=== PATIENT | male | born 1930 | race Caucasian/White ===

== ENCOUNTER → 2017-02-03 | Outpatient (CLI) | payer OTHER ==
[~2017-02-03] MED LIST: ASPIRIN81 M1 PO; TOPROL XL50 MG PO; ZOCOR PO
--- NOTE | ~2017-02-03 | US37 ---
[facility] A Service of [facility] / [facility] RADIOLOGY TEXT RESULTS PATIENT: PEG NUNES JR LOCATION: CNIV : 32 UNIT #: [id number] AGE: [address]: Toby Heaton MD SEX: M ORDER DR: [id number] [facility]. [place], [place] [address] [id number] O MR#: [id number] Acc #: [id number] NAME: PEG NUNES : 1930 SEX: M STUDY DATE/TIME: 02/03/2017 10:25 UNIT: CNIV ROOM: STUDY DESCRIPTION: US Carotid W/Doppler Bilateral Attending Physician: Toby Heaton M.D. Referring Physician: Toby Heaton M.D. Ordering Physician: Toby Heaton M.D. Primary Care Physician: Toby Heaton M.D. MEDICAL IMAGING REPORT This report is preliminary unless electronic signature is present EXAM Bilateral carotid duplex HISTORY Carotid bruit. FINDINGS Duplex imaging carotid arteries was performed. The right common carotid artery is patent. Plaque is seen. Plaque is seen in the internal and external carotid arteries which is mild and hyperechoic. Velocity in the right common carotid is 76 internal is 70 and external is 85 cm/sec. Right ICA/CCA ratio is 1.2. On the left side common carotid artery is patent. Heterogeneous plaque is seen in the left internal and external carotid arteries. Velocity in the left common carotid is 117, internal is 130 and external is 81 cm/sec left ICA/CCA ratio is 1.1. Antegrade flow is seen injury the right and left vertebral arteries. IMPRESSION 1. Plaque with less than 50% stenosis is seen in the right internal carotid artery. 2. Plaque with 50-69% stenosis is seen in the left internal carotid artery. 3. Antegrade flow is seen in the right and left vertebral arteries. Dictated by... Dwayne Silva M.D. [facility] A Service [facility] RADIOLOGY TEXT RESULTS PATIENT: PEG NUNES JR LOCATION: CNIV : 32 UNIT #: [id number] AGE: [address]: Toby Heaton MD SEX: M ORDER DR: THIS IS AN ELECTRONICALLY VERIFIED REPORT Dwayne Silva M.D. at 02/04/2017 5:03 PM Francesca TD: 02/03/2017 20:19 JOB #: [id number] MEDICAL IMAGING REPORT Page 1 of 1 COPY
== END | disposition home or self-care (01) ==
LOC: CNIV 09:52
DX: R09.89 Other specified symptoms and signs involving the circulatory and respiratory systems (principal); I65.23 Occlusion and stenosis of bilateral carotid arteries
CPT/HCPCS: 93880